=== PATIENT | male | born 1995 | race Caucasian/White ===

== ENCOUNTER 2017-01-22 09:58 | Day surgery (SDC) | payer OTHER, SELFPAY ==
[~2017-01-22] VITALS: Ht 180.3 cm; Wt 95.3 kg
[2017-01-22] MEDS ORDERED: LIDOCAINE 1% SDV 5 ML VIAL SQ ONE (10:00)
[2017-01-22] MEDS ORDERED: LR 1,000 ML IV ONE (10:00)
[2017-01-22] MEDS ORDERED: MIDAZOLAM INJ 2 MG/2 ML VIAL (J2250) As Ordered ONE (11:51)
[2017-01-22] MEDS ORDERED: fentaNYL 250 MCG/5 ML INJECTION (J3010) As Ordered ONE (11:53)
[2017-01-22] MEDS ORDERED: BUPIVACAINE HCL 0.5% 30 ML VIAL As Ordered ONE (12:01)
[2017-01-22] MEDS ORDERED: ROCURONIUM BROMIDE 50 MG/5 ML VIAL/SYRINGE As Ordered ONE (12:20)
[2017-01-22] MEDS ORDERED: SUCCINYLCHOLINE 100 MG/5 ML SYRINGE (J0330) As Ordered ONE (12:20)
[2017-01-22] MEDS ORDERED: LIDOCAINE 2% INJ 100 MG/5 ML SDV (FOR ANES.) As Ordered ONE (12:20)
[2017-01-22] MEDS ORDERED: PROPOFOL 200 MG/20 ML VIAL As Ordered ONE (12:20)
[2017-01-22] MEDS ORDERED: dexameTHASONE 4 MG/ML 1ML VIAL (J1100) As Ordered ONE (12:24)
[2017-01-22] MEDS ORDERED: PERCOCET 5MG/325MG TAB PO PRN (13:15)
[2017-01-22] MEDS ORDERED: ONDANSETRON 4MG/2ML VIAL (J2405) IV PRN (13:15)
[2017-01-22] MEDS ORDERED: fentaNYL 100 MCG/2 ML INJECTION (J3010) IV PRN (13:15)
[2017-01-22] MEDS ORDERED: HYDROcodone/APAP LIQUID 7.5-325MG 15ML UDC (LORTAB ELIXIR) PO PRN (13:15)
[2017-01-22] MEDS ORDERED: IBUPROFEN 800 MG TAB PO PRN (13:15)
[2017-01-22] MEDS ORDERED: LR 1,000 ML IV SCH (13:15)
[2017-01-22 14:05] VITALS: BP 135/61
--- NOTE | 2017-01-22 16:56 | RO ---
DATE OF PROCEDURE: 01/22/2017 PREOPERATIVE DIAGNOSES: Chronic tonsillitis. POSTOPERATIVE DIAGNOSES: Chronic tonsillitis. PROCEDURE: Tonsillectomy. SURGEON: Won Lynn MD PROOF CARRIER: ANESTHESIA: General endotracheal. INDICATIONS: This is a 21-year-old who presents with a history of recurrent tonsil stone formation and chronic infection. DESCRIPTION OF PROCEDURE: Satisfactory general endotracheal anesthesia administered, patient placed in Trendelenburg position and a Yoselin-Lamont gag inserted. First, the right tonsil was grasped with an Allis clamp and retracted out of its muscular fossa. Using cutting cautery, incision was made on the anterior pillar 3 mm from its edge and the capsule of the tonsil was then identified. Using a combination of cautery and blunt dissection, the tonsil was dissected medially out of its muscular fossa, working superiorly down into the space between the constrictor muscle and the tonsil capsule. The tonsil was rolled medially out of its fossa, working inferiorly and preserving the posterior pillar in its entirety. Once the tonsil was suspended only at the inferior pole, coagulation current was used to amputate tissue. No significant bleeding was encountered in this dissection. The left tonsil was removed in a similar fashion. After completing surgery, 0.5% Marcaine was injected into the surgical site. The gag was released at 3 minutes. Reinspection showed no active bleeding. The patient was then awakened, extubated, and sent to recovery in satisfactory condition. He will be discharged home on a selection of pain medicine including Hycet elixir, Motrin 800 mg three times a day and extra strength Tylenol. The patient will be seen back in the office in one week.
== END 2017-01-22 14:07 | disposition home or self-care (01) ==
LOC: M SDC 09:58
PROVIDERS: ATTEND Specialist
DX: J35.01 Chronic tonsillitis (principal); F17.290 Nicotine dependence, other tobacco product, uncomplicated
CPT/HCPCS: 42826; 88302; J0330; J1100; J2250; J3010